=== PATIENT | female | born 1965 | race Caucasian/White ===

== ENCOUNTER 2019-02-01 01:30 | Emergency (ER) | payer MEDICAID ==
[~2019-02-01] VITALS: Ht 177.8 cm; Wt 60.0 kg
[2019-02-01 01:36] VITALS: BP 123/85
--- NOTE | 2019-02-01 02:07 | NUR ---
PT AMBULATED STEADILY TO ROOM WITH TRIAGE TECH
[2019-02-01] MEDS ORDERED: ACETAMINOPHEN 500 MG TABLET ONE (02:46)
--- NOTE | 2019-02-01 02:52 | NUR ---
PT MEDICATED PER EMAR. DC EDUCATION PROVIDED, PT DEMONSTRATES UNDERSTANDING. PT AMBULATED STEADILY TO DC WITH RN
[2019-02-01] MEDS ORDERED: ACETAMINOPHEN 500 MG TABLET PO ONE (03:00)
== END 2019-02-01 02:54 | disposition home or self-care (01) ==
LOC: ED 02:38
DX: J02.8 Acute pharyngitis due to other specified organisms (principal); B97.89 Other viral agents as the cause of diseases classified elsewhere
CPT/HCPCS: 99282

== ENCOUNTER 2021-06-21 11:40 | Emergency (ER) | payer SELFPAY ==
[~2021-06-21] VITALS: Ht 175.3 cm; Wt 56.8 kg
[2021-06-21 18:43] VITALS: BP 124/86
== END 2021-06-21 18:48 | disposition home or self-care (01) ==
LOC: ED 18:44
DX: F10.220 Alcohol dependence with intoxication, uncomplicated (principal); Y90.9 Presence of alcohol in blood, level not specified
CPT/HCPCS: 36415; 80053; 80320; 81001; 83690; 85025; 87086; 96365; 99284; J3411; J3475; J3480; J7042